=== PATIENT | male | born 1945 | race Caucasian/White ===

== ENCOUNTER 2018-05-13 17:02 | Emergency (ER) | payer OTHER ==
[~2018-05-13] VITALS: Ht 177.8 cm; Wt 99.8 kg
[~2018-05-13 17:02] MED LIST: CEPH500 PO; METF500C; Norco 5-325 Ta1 EACH PO
[2018-05-13] MEDS ORDERED: METF500C PO (17:11)
[2018-05-13] MEDS ORDERED: Norco 5-325 Ta1 EACH PO (17:55)
== END 2018-05-13 18:06 | disposition home or self-care (01) ==
LOC: ER 17:02
DX: S86.912A Strain of unspecified muscle(s) and tendon(s) at lower leg level, left leg, initial encounter (principal); X58.XXXA Exposure to other specified factors, initial encounter; Z91.040 Latex allergy status; Z79.84 Long term (current) use of oral hypoglycemic drugs; Z87.891 Personal history of nicotine dependence
CPT/HCPCS: 73590; 99283-25

== ENCOUNTER 2018-12-20 12:37 | Emergency (ER) | payer OTHER ==
[~2018-12-20] VITALS: Ht 177.8 cm; Wt 90.7 kg
[~2018-12-20 12:37] MED LIST changes: +METF500C PO
[2018-12-20] MEDS ORDERED: ELIQUIS5 MG PO (16:58)
== END 2018-12-20 17:10 | disposition home or self-care (01) ==
LOC: ER 12:37
DX: I48.91 Unspecified atrial fibrillation (principal); M54.2 Cervicalgia; Z91.040 Latex allergy status; Z79.84 Long term (current) use of oral hypoglycemic drugs; Z87.891 Personal history of nicotine dependence; Z85.46 Personal history of malignant neoplasm of prostate; R07.9 Chest pain, unspecified; R91.8 Other nonspecific abnormal finding of lung field
CPT/HCPCS: 70498; 71046; 80053; 83880; 84484; 85025; 93005; 93010; 99284-25; Q9967

== ENCOUNTER 2024-06-26 11:33 | Inpatient (IN) | payer OTHER ==
[~2024-06-26] VITALS: Ht 170.2 cm; Wt 82.8 kg
[~2024-06-26 11:33] MED LIST changes: +ATORVASTATIN CA20 MG PO; +COQ-10100 MG PO; +ELIQUIS5 MG PO; +ESCI10 PO; +METOPROLOL SUCC25 MG PO; +THERA-D2000 UNIT PO
[2024-06-26 12:03] LABS: BASOPHILS ABSOLUTE AUTO 0.02 K/mm3 (0.00-0.23); BASOPHILS PERCENT AUTO 0 % (0-2); EOSINOPHILS PERCENT AUTO 0 % (0-6); Hematocrit 38.4 % (37.0-53.0); Hemoglobin 13.3 g/dL (13.5-17.5); IMMATURE GRAN ABSOLUTE AUTO 0.03 K/mm3 (0.00-0.10); IMMATURE GRAN PERCENT AUTO 0 % (0-1); LYMPHOCYTES PERCENT AUTO 10 % (21-46); MONOCYTES PERCENT AUTO 6 % (4-13); Mean Corpuscular HGB 31.1 pg (26.0-34.0); Mean Corpuscular HGB Conc 34.6 g/dL (31.5-36.5); Mean Corpuscular Volume 90 fL (80-100); NEUTROPHILS ABSOLUTE AUTO 5.77 K/mm3 (1.96-9.15); NEUTROPHILS PERCENT AUTO 83 % (41-73); Platelet Count 148 K/mm3 (150-400); RDW Coefficient Variation 14.2 % (11.7-14.2); RDW Standard Deviation 46.7 fL (35.1-46.3); Red Blood Cell Count 4.28 M/mm3 (4.30-5.90); White Blood Cell Count 6.92 K/mm3 (4.00-11.30)
[2024-06-26 12:29] LABS: Albumin, Blood 2.9 g/dL (3.4-5.0); Albumin/Globulin Ratio 0.7 (0.8-1.8); Bilirubin, Total 1.2 mg/dL (0.1-1.0); Bun/Creatinine Ratio 14.1 (12.0-20.0); Calcium, Blood 8.5 mg/dL (8.5-10.1); Creatinine, Blood 0.71 mg/dL (0.60-1.20); Potassium, Blood 3.3 mmol/L (3.5-5.5); Total Protein, Blood 6.9 g/dL (6.4-8.2)
[2024-06-26] MEDS ORDERED: CefTRIAXone Sodium 1,000 MG in NS 100 ML IV ONE (13:15)
[2024-06-26] MEDS ORDERED: Vancomycin HCL 1,250 MG in NS 250 ML IV ONE (13:15)
[2024-06-26 13:17] LABS: Influenza A, PCR POSITIVE (NEGATIVE); Influenza B, PCR NEGATIVE (NEGATIVE); Resp Syncytial Virus, PCR NEGATIVE (NEGATIVE); SARS-Cov-2 (COVID-19) PCR, MMC NEGATIVE (NEGATIVE)
[2024-06-26] MEDS ORDERED: Albuterol 2.5 MG/3 ML VIAL INH PRN (14:10)
[2024-06-26] MEDS ORDERED: Acetaminophen 325 MG TABLET PO PRN (14:10)
[2024-06-26] MEDS ORDERED: Potassium Chloride 10 Meq Tablet SA PO ONE (14:15)
[2024-06-26] MEDS ORDERED: NS 1,000 ML IV SCH ×2 (14:15→16:25)
[2024-06-26] MEDS ORDERED: Ipratropium/Albuterol SulF 2.5-0.5MG/3 ML Amp INH SCH (14:15)
[2024-06-26] MEDS ORDERED: FLU VACC TS2024-25(6MOS UP)/PF 45 MCG/0.5 ML SYRINGE IM SCH (14:15)
[2024-06-26] MEDS ORDERED: Vancomycin HCL 1,750 MG in NS 500 ML IV ONE (14:50)
[2024-06-26] MEDS ORDERED: TRELEGY ELLIPT1 EACH (14:53)
[2024-06-26] MEDS ORDERED: Tessalon200 MG PO (14:53)
[2024-06-26] MEDS ORDERED: Azithromycin 500 MG in NS 250 ML IV SCH (15:00)
[2024-06-26] MEDS ORDERED: Oseltamivir Phosphate 75 MG Cap PO SCH (15:00)
[2024-06-26 15:22] VITALS: BP 121/85
[2024-06-26] MEDS ORDERED: NS KCl 20mEq 1,000 ML IV SCH (17:55)
[2024-06-26] MEDS ORDERED: NS 250 ML IV PRN (20:20)
[2024-06-26 20:28] VITALS: BP 107/77
[2024-06-26] MEDS ORDERED: GuaiFENesin 600 MG TabCR PO SCH (21:00)
[2024-06-26] MEDS ORDERED: Metoprolol Succinate 25 MG TABCR PO SCH (21:35)
[2024-06-26] MEDS ORDERED: Apixaban 5 MG Tab PO SCH (21:35)
[2024-06-26] MEDS ORDERED: Metoprolol Tartrate 1 MG/ML 5 ML VIAL IV PRN (21:40)
[2024-06-26 21:47] VITALS: BP 103/64
[2024-06-27] VITALS (10 sets, daily range): BP systolic 95–115; BP diastolic 67–82
[2024-06-27] MEDS ORDERED: Benzonatate 100 MG Cap PO PRN (02:20)
[2024-06-27] MEDS ORDERED: Vancomycin HCL 1,000 MG in NS 250 ML IV SCH (04:00)
[2024-06-27 05:10] LABS: BASOPHILS ABSOLUTE AUTO 0.01 K/mm3 (0.00-0.23); BASOPHILS PERCENT AUTO 0 % (0-2); EOSINOPHILS PERCENT AUTO 0 % (0-6); Hematocrit 34.4 % (37.0-53.0); Hemoglobin 11.8 g/dL (13.5-17.5); IMMATURE GRAN ABSOLUTE AUTO 0.03 K/mm3 (0.00-0.10); IMMATURE GRAN PERCENT AUTO 0 % (0-1); LYMPHOCYTES ABSOLUTE AUTO 0.61 K/mm3 (0.84-5.20); LYMPHOCYTES PERCENT AUTO 9 % (21-46); MONOCYTES ABSOLUTE AUTO 0.44 K/mm3 (0.16-1.47); MONOCYTES PERCENT AUTO 7 % (4-13); Mean Corpuscular HGB 30.8 pg (26.0-34.0); Mean Corpuscular HGB Conc 34.3 g/dL (31.5-36.5); Mean Corpuscular Volume 90 fL (80-100); Mean Platelet Volume 9.9 fL (9.1-12.4); NEUTROPHILS ABSOLUTE AUTO 5.63 K/mm3 (1.96-9.15); NEUTROPHILS PERCENT AUTO 84 % (41-73); Platelet Count 144 K/mm3 (150-400); RDW Coefficient Variation 14.1 % (11.7-14.2); RDW Standard Deviation 46.7 fL (35.1-46.3); Red Blood Cell Count 3.83 M/mm3 (4.30-5.90); White Blood Cell Count 6.72 K/mm3 (4.00-11.30)
[2024-06-27 05:51] LABS: Bun/Creatinine Ratio 14.5 (12.0-20.0); Calcium, Blood 8.1 mg/dL (8.5-10.1); Creatinine, Blood 0.62 mg/dL (0.60-1.20)
--- NOTE | 2024-06-27 05:55 | NUR ---
SHIFT SUMMARY NOC PT A/O X 4. PLEASANT AND COOPERATIVE WITH CARE. HR IN 120'S- 140'S DURING CHANGE OF SHIFT VS. PT HR RECHECKED MANUALLY AND WITH PULSE OX AND REMAINED TACHYCARDIC 120'S. HOSPITALIST NOTIFIED AND PT HOME RX METOPROLOL AND ELIQUIS RESTARTED AND PT PLACED IN TELE RUNNING AFIB IN 100'S-130'S. ONE TIME PRN DOSE OF IV METOPROLOL GIVEN THIS AM AND NOW AFIB IN 90'S-100'S. PT REMAINS ON 4L/NC SPO2 >92%. PT HAS HACKING COUGH GIVEN TESSALON PERRLS FOR RELIEF WELL PRN BREATHING TX FROM RT. POTASSIUM 3.0 THIS AM AND HOSPITALIST ORDERED IV KCL 40 MEQ X 1 FOR REPLACEMENT. PT ON DROPLET ISOLATION FOR INFLUENZA A. PT CURRENTLY RESTING WITH BED IN LOWEST POSITION, AND CALL LIGHT WITHIN REACH.
[2024-06-27] MEDS ORDERED: Potassium Chloride 40 MEQ in NS 250 ML IV ONE (06:35)
[2024-06-27] MEDS ORDERED: Enoxaparin 40 MG/0.4 ML SYR SC SCH (09:00)
[2024-06-27] MEDS ORDERED: Metoprolol Tartrate 1 MG/ML 5 ML VIAL IV ONE ×2 (09:45→21:15)
[2024-06-27] MEDS ORDERED: CefTRIAXone Sodium 1,000 MG in NS 100 ML IV SCH (12:00)
[2024-06-27] MEDS ORDERED: CefTRIAXone 1000 MG Vial ONE (12:17)
[2024-06-27] MEDS ORDERED: DEXTROMETHORPHAN/BENZOCAINE 1 EACH LOZENGE MT PRN (12:40)
[2024-06-27] MEDS ORDERED: Vancomycin HCL 1,250 MG in NS 250 ML IV SCH (14:00)
[2024-06-27] MEDS ORDERED: PredniSONE 20 MG Tab PO SCH (14:00)
--- NOTE | 2024-06-27 17:51 | NUR ---
SHIFT SUMMARY PATIENT A/OX3-4, ABLE TO MAKE NEEDS KNOWN. PLEASANT AND TALKATIVE WITH STAFF. 1 PERSON ASSIT. ABLE TO HAVE A SHOWER TODAY. WEANED FROM 4LPM OXYGEN TO 3 LPM VIA NASAL CANNULA, TOLERATING WELL. TELEMETRY IN PLACE, PATIENT WITH MULTIPLE CALLS FROM TELEMETRY FOR HEART RATE 130s 140s IN AFIB. MD AWARE. IV METOPOLOL ADMINISTERED THIS AM AND EFFECTIVE IN REACHING HEART RATE OF 110s. PATIENT STARTED ON PREDNISONE. POTASSIUM REPLACED PER JUN. CONTINUES WITH IV ABX PER JUN. PATIENT WITH FAMILY AT BEDSIDE INTERMITENTLY THROUGHOUT THE SHIFT AND , MARIIA AT BEDSIDE MOST OF THE DAY. PRN COUGH DROPS ADMINISTERED PER JUN AND TESSALON PEARLS. CONTINUES WITH HACKING PRODUCTIVE COUGH THAT PATIENT STATES IS INTERMITTENTLY PAINFUL. NO OTHER CONCERNS AT THIS TIME.
[2024-06-28] VITALS (11 sets, daily range): BP systolic 84–114; BP diastolic 49–82
[2024-06-28 01:30] LABS: Anion Gap 9 mmol/L (3-11); Blood Urea Nitrogen 15 mg/dL (8-24); Bun/Creatinine Ratio 21.1 (12.0-20.0); CO2, Blood 24 mmol/L (21-32); Calcium, Blood 8.4 mg/dL (8.5-10.1); Chloride, Blood 102 mmol/L (98-108); Creatinine, Blood 0.71 mg/dL (0.60-1.20); Glomerular Filtration Rate 93 (60-); Glucose, Blood 333 mg/dL (70-99); Potassium, Blood 3.9 mmol/L (3.5-5.5); Sodium, Blood 131 mmol/L (136-145); Vancomycin, Trough 14.4 ug/mL (5.0-10.0)
--- NOTE | 2024-06-28 05:07 | NUR ---
AAO X3, USES CALL LIGHT FOR NEEDS. TELE IN PLACE AFIB 110'S-120'S. NOTIFIED HOSPITALIST AFIB @ 150, REC'D ONE TIME DOSE 5MG LOPRESSOR. HR DOWN TO 115. 3L VIA NC, BASELINE RA. ASSIT TO BR X1 ASSIST WITH WALKER. RECIEVING ROCEPIN, ZITHOMAX AND VANC, #20 R WRIST. TYLENOL GIVEN @ HS FOR C/O SHOULDER VILLA. SLEPT IN RECLINER D/T COUGHING AND BED UNCOMFORTABLE.
--- NOTE | 2024-06-28 09:00 | NUR ---
Pt sitting up in chair, a/ox3, pleasant and cooperative with care, follows commands, no complaints at this time, heart rate in the 130's, gave metoprolol with am meds, he is on tele, lungs are clear in upper ambriz, crackles in bases, has a frequent tight cough, occ brings up phlem, on 3 liters 02 via n/c hrirr, tele running afib with bbb per monitor, see strip, 2+ edema noted to b/l le, cap refill <3 sec, vs stalble, afebrile, piv to rfa site is clear and patent, btx4, abd flat soft nontender, voids without diff, skin c/w/d, maew, ambulates with walker, neema, states he's feeling better, call light in reach.
[2024-06-28] MEDS ORDERED: dilTIAZem HCL 120 MG CAP.CD PO SCH (10:00)
[2024-06-28] MEDS ORDERED: Metoprolol Tartrate 1 MG/ML 5 ML VIAL IV PRN (10:30)
[2024-06-28] MEDS ORDERED: Diltiazem HCl 5 MG / ML 5ML Vial IV ONE (11:20)
--- NOTE | 2024-06-28 11:50 | NUR ---
pt heart rate went to 170 while in bathroom, has come down to 130-140 after sitting back in chair, call to Dr. Nowak, recieved order for a one time cardizem push of 15mg, this was given, heart rate down to 90's to low 100's, b/p did drop to the 80s briefly, no call light in reach.
[2024-06-28] MEDS ORDERED: Guaifenesin/Dextromethorphan Syrup 5 ML UDC PO STA (13:06)
[2024-06-28] MEDS ORDERED: Guaifenesin/Dextromethorphan Syrup 5 ML UDC PO PRN (14:00)
--- NOTE | 2024-06-28 16:22 | NUR ---
MET WITH PATIENT AND MARIIA. REVIEWED DIAGNOSTIC CT. DISCUSSED ADVANCED DIRECTIVE, SPOUSE REPORTS THEY FILLED IT OUT AT THE [facility]. PROVIDED THERAPUTIC CONVERSATION.
--- NOTE | 2024-06-28 18:36 | NUR ---
pt sat in chair all shift, spouce at bedside, he is [place], and has difficulty understanding with mask on staff, reads lips, did have a ct of chest this shift, call light in reach.
[2024-06-29 00:08] VITALS: BP 82/62
[2024-06-29 04:39] LABS: Hematocrit 34.1 % (37.0-53.0); Hemoglobin 11.1 g/dL (13.5-17.5); Mean Corpuscular HGB 30.3 pg (26.0-34.0); Mean Corpuscular HGB Conc 32.6 g/dL (31.5-36.5); Mean Corpuscular Volume 93 fL (80-100); Mean Platelet Volume 9.4 fL (9.1-12.4); Platelet Count 202 K/mm3 (150-400); RDW Standard Deviation 47.9 fL (35.1-46.3); Red Blood Cell Count 3.66 M/mm3 (4.30-5.90); White Blood Cell Count 6.81 K/mm3 (4.00-11.30)
[2024-06-29 05:05] LABS: Bun/Creatinine Ratio 20.3 (12.0-20.0); Calcium, Blood 8.7 mg/dL (8.5-10.1); Creatinine, Blood 0.79 mg/dL (0.60-1.20); Potassium, Blood 4.2 mmol/L (3.5-5.5)
[2024-06-29 05:32] VITALS: BP 104/76
--- NOTE | 2024-06-29 06:37 | NUR ---
Shift Summary Pt in Afib t/o the night 75-110 bmp usually upper 80s. While using the BR HR spiked up to 140. No c/o of chest pain or discomfort. He has a hacking cough which is usually dry, gave cough medicine PRN. He slept t/o the night in the chair on 3L NC. 1 assist w/ FWW to BR and back. He is AOx4, calls approriatly.
[2024-06-29 07:45] VITALS: BP 116/72
[2024-06-29] MEDS ORDERED: Citalopram Hydrobromide 20 MG Tab PO SCH (09:00)
[2024-06-29] MEDS ORDERED: Cholecalciferol 1000 Unit Tablet (=25MCG) PO SCH (09:00)
[2024-06-29] MEDS ORDERED: Atorvastatin 10 MG Tab PO SCH (09:00)
[2024-06-29] MEDS ORDERED: Furosemide 10 MG/ML 4ML Vial IV ONE (12:35)
[2024-06-29 15:32] VITALS: BP 94/72
[2024-06-29] MEDS ORDERED: Insulin Human Lispro 100 Units/ML 3ML Syringe SC SCH (16:30)
--- NOTE | 2024-06-29 16:36 | NUR ---
SUPPORTIATIVE VISIT. PATIENT IS UP TO THE CHAIR. HE REPORTED THAT HE HAD A VISITOR THIS MORNING AND WAS TALKING MORE THAN HE HAD BEFORE AND HE WAS FEELING A BIT TIRED FROM THAT. KEPT MY VISIT BRIEF TO ALLOW REST
[2024-06-29 18:04] LABS: Acinetobacter baumannii DNA Not Detected copy/mL (NOT DETECT); Adenovirus DNA Not Detected (NOT DETECT); Chlamydia pneumonia Not Detected (NOT DETECT); Enterobacter cloacae DNA Not Detected copy/mL (NOT DETECT); Escherichia coli DNA Not Detected copy/mL (NOT DETECT); Haemophilus influenzae DNA Not Detected copy/mL (NOT DETECT); Human Coronavirus RNA Not Detected (NOT DETECT); Human Metapneumovirus RNA Not Detected (NOT DETECT); Influenza virus A RNA Detected (NOT DETECT); Influenza virus B RNA Not Detected (NOT DETECT); Klebsiella aerogenes DNA Not Detected copy/mL (NOT DETECT); Klebsiella oxytoca DNA Not Detected copy/mL (NOT DETECT); Klebsiella pneumoniae DNA Not Detected copy/mL (NOT DETECT); Legionella pneumophila Not Detected (NOT DETECT); Moraxella catarrhalis DNA Not Detected copy/mL (NOT DETECT); Mycoplasma pneumoniae Not Detected (NOT DETECT); Parainfluenza virus RNA Not Detected (NOT DETECT); Proteus sp DNA Not Detected copy/mL (NOT DETECT); Pseudomonas aeruginosa DNA Not Detected copy/mL (NOT DETECT); Respiratory syncytial Vir RNA Not Detected (NOT DETECT); Rhinovirus+Enterovirus RNA Not Detected (NOT DETECT); Serratia marcescens DNA Not Detected copy/mL (NOT DETECT); Staphylococcus aureus DNA Not Detected copy/mL (NOT DETECT); Streptococcus agalactiae DNA Not Detected copy/mL (NOT DETECT); Streptococcus pneumoniae DNA Detected Bin 10^4 copy/mL (NOT DETECT); Streptococcus pyogenes DNA Not Detected copy/mL (NOT DETECT)
--- NOTE | 2024-06-29 18:17 | NUR ---
PT PLEASANT TODAY. HAVING MANY COUGHING FITS T/O DAY. WHEN COUGHING, DOES ELEVATE H/R TO 140'S. AFTER CALMED DOWN. BACK TO LOW 100'S. IN ROOM TODAY. LUNGS COARSE IN BASES CONTINUES ON 3L O2. REQUESTED ADD CODIENE TO COUGH MED. STATES NOT BENEFICIAL. PT STILL AMBULATING TO BATHROOM, 1 MIN ASST FOR LINES. NO FURTHER CONCERNS NOTED. BED IN LOW POSITION, CALL LITE IN REACH, CALLS APPROP
[2024-06-29 19:05] LABS: Adenovirus Not Detected (NOT DETECT); Bordetella pertussis Not Detected (NOT DETECT); Chlamydophila pneumoniae Not Detected (NOT DETECT); Coronavirus 229E Not Detected (NOT DETECT); Coronavirus HKU1 Not Detected (NOT DETECT); Coronavirus NL63 Not Detected (NOT DETECT); Coronavirus OC43 Not Detected (NOT DETECT); Human Metapneumovirus Not Detected (NOT DETECT); Human Rhinovirus/Enterovirus Not Detected (NOT DETECT); Influenza A/H1 Not Detected (NOT DETECT); Influenza A/H3 Not Detected (NOT DETECT); Influenza B Not Detected (NOT DETECT); Mycoplasma pneumoniae Not Detected (NOT DETECT); Parainfluenza Virus 1 Not Detected (NOT DETECT); Parainfluenza Virus 2 Not Detected (NOT DETECT); Parainfluenza Virus 3 Not Detected (NOT DETECT); Parainfluenza Virus 4 Not Detected (NOT DETECT); Respiratory Syncytial Virus Not Detected (NOT DETECT); SARS-Cov-2 (COVID-19), BioFire Not Detected (NOT DETECT)
[2024-06-29 19:20] VITALS: BP 136/66
--- NOTE | 2024-06-30 00:19 | NUR ---
PT'S HS BLOOD SUGAR WAS 366-ACCORDING TO EMAR HOSPITALIST IS TO BE NOTIFIED WITH BS ABOVE 350. ACCORDING TO SLIDING SCALE HS INSULIN DOSE IS 5 UNITS AND HOSPITALIST AGREED TO GIVING 5 UNITS OF REGULAR INSULIN.
[2024-06-30 01:13] VITALS: BP 110/80
[2024-06-30 01:55] LABS: Anion Gap 6 mmol/L (3-11); Blood Urea Nitrogen 18 mg/dL (8-24); Bun/Creatinine Ratio 22.1 (12.0-20.0); CO2, Blood 30 mmol/L (21-32); Calcium, Blood 8.3 mg/dL (8.5-10.1); Chloride, Blood 101 mmol/L (98-108); Creatinine, Blood 0.82 mg/dL (0.60-1.20); Glomerular Filtration Rate 89 (60-); Glucose, Blood 245 mg/dL (70-99); Potassium, Blood 4.1 mmol/L (3.5-5.5); Sodium, Blood 133 mmol/L (136-145); Vancomycin, Trough 20.6 ug/mL (5.0-10.0)
--- NOTE | 2024-06-30 04:41 | NUR ---
SHIFT SUMM: PT IS A 78 YO FULL CODE WHO WAS ADMITTED FOR HYPOXIA AND IS CURRENTLY IN DROPLET PRECAUTIONS FOR INFLUENZA A. PT IS ON 3L OF O2 AND VERY [place]. PT IS A PLEASANT TYPE 2 DIABEIC WHO RECEIVED 5 UNITS OF REG INSULIN THIS SHIFT (SEE PREV NOTES). PT IS ON TELE WITH AFIB AT 90 AND A BBB. PT IS A SBA TO HELP PT WITH MANAGING LINES WHEN HE USES THE RESTROOM. PT HAS COUGHING FITS WHERE HE BECOMES TACHYCARDIC AT TIMES. PT HAS BEEN MEDICATED FOR COUGH THIS SHIFT WELL. PT REPORT FEELING ANXIOUS AND NERVOUS THIS SHIFT ABOUT HIS PNEUMONIA AND WORRIED ABOUT RECOVERY AT HIS AGE. PT HAS CALL LIGHT IN REACH AND MAKES NEEDS KNOWN.
[2024-06-30 07:56] VITALS: BP 105/88
[2024-06-30] MEDS ORDERED: PredniSONE 10 MG Tab PO SCH (09:00)
[2024-06-30 11:37] VITALS: BP 100/67
[2024-06-30] MEDS ORDERED: Vancomycin HCL 1,000 MG in NS 250 ML IV SCH (14:00)
[2024-06-30 15:59] VITALS: BP 93/70
--- NOTE | 2024-06-30 16:08 | NUR ---
SHIFT SUMMARY PATIENT ON 3 LITERS NC. TELE MONITORING. ABLE TO AMBULATE TO BATHROOM WITH SBA FOR LINES, APPEARS STEADY. CONTINUES ON DROPLET ISOLATION. HAS HAD SOME COUGHING EPISODES, ANGEL MALIN ADMIN PER MAR, PATIENT STATES DURATION AND SEVERITY OF COUGHING EPISODES IS SIGNIFICANTLY LESS THAN YESTERDAY. TOLERATING IV ABX WELL. EATING AND DRINKING ADEQUATELY. BLOOD CX NEG X 3 DAYS. ABLE TO MAKE NEEDS KNOWN. CALL LIGHT IN REACH.
[2024-06-30 20:34] VITALS: BP 100/73
[2024-07-01] VITALS (7 sets, daily range): BP systolic 104–117; BP diastolic 63–81
--- NOTE | 2024-07-01 03:28 | NUR ---
SHIFT SUMM: PT IS DOING BETTER THIS SHIFT AND NOT COUGHING MUCH YESTERDAY.PT REPORTS FEELING BETTER AND WAS VISITED BY NIECE AT BEGINNING OF SHIFT AND PT ALSO SHOWERED THIS SHIFT. PT CONTINUES TO BE ON TELE AND IS AFIB IN THE 80'S W/BBB. PT CONTINUES TO BE ON 3L OF OX ON NC AND STEADY SBA WHEN HE GOES TO THE RESTROOM. PT RECIEVED 3 UNITS OF REG INSULIN THIS SHIFT BEFORE BED. PT HAS CALL LIGHT IN REACH AND HAS BEEN RESTING IN CHAIR MAJORITY OF SHIFT.
[2024-07-01 09:49] LABS: Hematocrit 35.1 % (37.0-53.0); Hemoglobin 11.7 g/dL (13.5-17.5); Mean Corpuscular HGB 30.7 pg (26.0-34.0); Mean Corpuscular HGB Conc 33.3 g/dL (31.5-36.5); Mean Corpuscular Volume 92 fL (80-100); Mean Platelet Volume 9.2 fL (9.1-12.4); Platelet Count 249 K/mm3 (150-400); RDW Coefficient Variation 13.7 % (11.7-14.2); RDW Standard Deviation 46.7 fL (35.1-46.3); Red Blood Cell Count 3.81 M/mm3 (4.30-5.90); White Blood Cell Count 8.26 K/mm3 (4.00-11.30)
[2024-07-01 10:07] LABS: Calcium, Blood 8.8 mg/dL (8.5-10.1); Creatinine, Blood 0.79 mg/dL (0.60-1.20); Potassium, Blood 3.6 mmol/L (3.5-5.5)
[2024-07-01 13:32] LABS: Vancomycin, Trough 21.5 ug/mL (5.0-10.0)
--- NOTE | 2024-07-01 13:38 | NUR ---
CRITICAL VALUE TOOK CALL FROM LAB FOR CRITICAL HIGH VANCO OF 21.5. CALLED DR KING WHO ADVISED TO CALL PHARMACY. PHARMACY WAS NOTIFIED AND CELSA STATED SHE WOULD TAKE A LOOK. NO CHANGE TO PATIENT CONDITION AT THIS TIME.
[2024-07-01] MEDS ORDERED: Furosemide 10 MG/ML 4ML Vial IV ONE (18:15)
--- NOTE | 2024-07-01 18:39 | NUR ---
SHIFT SUMMARY RECEIVED CALL FROM DR KING, ORDERED AM LABS AND ONE TIME LASIX WHICH WAS GIVEN PER JUN. PATIENT IN CHAIR MOST OF SHIFT, AMBULATING TO BATHROOM WITH SBA. ON 2 LITERS NC. EATING WELL. NO C/O PAIN. A/O X3-4. NO BM THIS SHIFT. COUGH LESSENED WITH TESSALON PERLS, NO EXTREME EPISODES THIS SHIFT. ABLE TO MAKE NEEDS KNOWN. CALL LIGHT IN REACH.
[2024-07-01] MEDS ORDERED: Vancomycin HCL 750 MG in NS 250 ML IV SCH (21:00)
[2024-07-02 03:34] VITALS: BP 112/82
--- NOTE | 2024-07-02 05:07 | NUR ---
SHIFT SUMMARY: PT IS AOX4 WITH SOME FORGETFULLNESS. CALLS APPROPRIATELY AND IS COOPERATIVE IN CARE. ABLE TO AMBULATE SBA TO THE BATHROOM AND VOID IND. JUST TO MANAGE ANY LINES. PT TOLERATING MEDICATION WELL. NO ACUTE EVENTS OVERNIGHT. PT IN THE CHAIR RESTING, CALL LIGHT IN REACH. COUGH MEDICATED PER EMR. CONTINUING CARE.
[2024-07-02 06:13] LABS: Bun/Creatinine Ratio 21.1 (12.0-20.0); Calcium, Blood 8.6 mg/dL (8.5-10.1); Creatinine, Blood 0.86 mg/dL (0.60-1.20); Potassium, Blood 3.5 mmol/L (3.5-5.5)
[2024-07-02 07:32] VITALS: BP 126/79
[2024-07-02 11:19] VITALS: BP 112/85
[2024-07-02 15:23] VITALS: BP 111/73
[2024-07-02] MEDS ORDERED: DILT120 PO (16:49)
[2024-07-02] MEDS ORDERED: Q-Tussin100 MG/5 M PO (16:49)
[2024-07-02] MEDS ORDERED: GUAI600T33 PO (16:50)
[2024-07-02] MEDS ORDERED: VISBIOME 112.51 EACH PO (16:50)
[2024-07-02] MEDS ORDERED: CEFU500T30 PO (16:51)
[2024-07-02] MEDS ORDERED: Prednisone10 MG PO (16:51)
[2024-07-02] MEDS ORDERED: Tessalon200 MG PO (16:51)
--- NOTE | 2024-07-02 18:34 | NUR ---
DISCHARGE REVIEWD WITH PT AND SPOUSE. IV PULLED BY AIDE AND TELE REMOVED BY AIDE. PT VERBALIZED UNDRSTANDING MEDS AND INST. WHEELED TO DOOR AT 1746
[2024-07-05 09:14] LABS: Influenza A/2009-H1 Detected (NOT DETECT)
== END 2024-07-02 17:28 | disposition home or self-care (01) | DRG 871 ==
LOC: ER 11:33 → MEDS 14:08
PROVIDERS: Student in an Organized Health Care Education/Training Program; ADMIT Internal Medicine
DX: A41.89 Other specified sepsis (principal); J10.00 Influenza due to other identified influenza virus with unspecified type of pneumonia; J96.01 Acute respiratory failure with hypoxia; E87.1 Hypo-osmolality and hyponatremia; I48.20 Chronic atrial fibrillation, unspecified; J44.0 Chronic obstructive pulmonary disease with (acute) lower respiratory infection; F03.93 Unspecified dementia, unspecified severity, with mood disturbance; F03.94 Unspecified dementia, unspecified severity, with anxiety; R65.20 Severe sepsis without septic shock; E87.6 Hypokalemia; I10 Essential (primary) hypertension; E78.5 Hyperlipidemia, unspecified; J43.9 Emphysema, unspecified; J84.10 Pulmonary fibrosis, unspecified; E11.65 Type 2 diabetes mellitus with hyperglycemia; E88.09 Other disorders of plasma-protein metabolism, not elsewhere classified; I45.10 Unspecified right bundle-branch block; T38.0X5A Adverse effect of glucocorticoids and synthetic analogues, initial encounter; Z79.84 Long term (current) use of oral hypoglycemic drugs; Z79.01 Long term (current) use of anticoagulants; Z85.46 Personal history of malignant neoplasm of prostate; Z87.891 Personal history of nicotine dependence; Z90.79 Acquired absence of other genital organ(s); Z91.040 Latex allergy status
CPT/HCPCS: 0202U; 0241U; 0528U; 36415; 71046; 71250; 80048; 80053; 80202; 82947; 83880; 84145; 84484; 85025; 85027; 87040; 93005; 93010; 94640; 94664; 94760; 94761; 96374; 97161; 97165; 97530; 97535; 99285-25; A9270; J0456; J0696; J1650; J1940; J3370; J3480; J7040; J7050; J7512

== ENCOUNTER 2024-10-02 09:05 | Emergency (ER) | payer OTHER ==
[~2024-10-02] VITALS: Ht 177.8 cm; Wt 96.2 kg
[~2024-10-02 09:05] MED LIST changes: +CEFU500T30 PO; +DILT120 PO; +GUAI600T33 PO; +Prednisone10 MG PO; +Q-Tussin100 MG/5 M PO; +TRELEGY ELLIPT1 EACH; +Tessalon200 MG PO; +VISBIOME 112.51 EACH PO
[2024-10-02 10:13] VITALS: BP 108/74
[2024-10-02 10:58] LABS: BASOPHILS ABSOLUTE AUTO 0.06 K/mm3 (0.00-0.23); BASOPHILS PERCENT AUTO 1 % (0-2); EOSINOPHILS ABSOLUTE AUTO 0.11 K/mm3 (0.00-0.68); EOSINOPHILS PERCENT AUTO 1 % (0-6); Hemoglobin 9.5 g/dL (13.5-17.5); IMMATURE GRAN ABSOLUTE AUTO 0.03 K/mm3 (0.00-0.10); IMMATURE GRAN PERCENT AUTO 0 % (0-1); LYMPHOCYTES ABSOLUTE AUTO 1.03 K/mm3 (0.84-5.20); LYMPHOCYTES PERCENT AUTO 12 % (21-46); MONOCYTES ABSOLUTE AUTO 0.62 K/mm3 (0.16-1.47); MONOCYTES PERCENT AUTO 8 % (4-13); Mean Corpuscular HGB 32.8 pg (26.0-34.0); Mean Corpuscular HGB Conc 33.9 g/dL (31.5-36.5); Mean Corpuscular Volume 97 fL (80-100); Mean Platelet Volume 10.9 fL (9.1-12.4); NEUTROPHILS ABSOLUTE AUTO 6.45 K/mm3 (1.96-9.15); NEUTROPHILS PERCENT AUTO 78 % (41-73); Platelet Count 175 K/mm3 (150-400); RDW Standard Deviation 48.6 fL (35.1-46.3)
[2024-10-02 11:08] LABS: IMMATURE RETIC FRACTION 22.6 % (2.3-16.0); RETIC HGB EQUIVALENT 34.7 pg (28.20-36.60); RETICULOCYTE COUNT PERCENT 2.57 % (0.50-2.50)
[2024-10-02 11:19] LABS: Albumin, Blood 3.4 g/dL (3.4-5.0); Albumin/Globulin Ratio 1.1 (0.8-1.8); Bilirubin, Total 0.9 mg/dL (0.1-1.0); Bun/Creatinine Ratio 12.5 (12.0-20.0); Calcium, Blood 9.1 mg/dL (8.5-10.1); Creatinine, Blood 1.04 mg/dL (0.60-1.20); Globulin, Blood 3.2 g/dL (2.2-4.0); Potassium, Blood 3.7 mmol/L (3.5-5.5); Total Protein, Blood 6.6 g/dL (6.4-8.2)
[2024-10-06] MEDS ORDERED: ELIQUIS5 M2 PO (09:17)
[2024-10-06] MEDS ORDERED: BREZTRI AEROS10.7 GM INH (09:20)
[2024-10-07] MEDS ORDERED: ASCO500 PO (12:24)
[2024-10-07] MEDS ORDERED: DOCU100 PO (12:28)
[2024-10-07] MEDS ORDERED: FERSU300 PO (12:29)
== END 2024-10-02 12:15 | disposition home or self-care (01) ==
LOC: ER 09:05
PROVIDERS: Emergency Medicine
DX: R31.0 Gross hematuria (principal); I48.91 Unspecified atrial fibrillation; E11.9 Type 2 diabetes mellitus without complications; F03.90 Unspecified dementia, unspecified severity, without behavioral disturbance, psychotic disturbance, mood disturbance, and anxiety; E78.5 Hyperlipidemia, unspecified; Z79.01 Long term (current) use of anticoagulants; Z91.040 Latex allergy status; Z79.84 Long term (current) use of oral hypoglycemic drugs; Z79.899 Other long term (current) drug therapy
CPT/HCPCS: 80053; 85025; 85045; 86850; 86900; 86901; 99283

== ENCOUNTER 2024-11-13 10:00 | Day surgery (SDC) | payer OTHER ==
[~2024-11-13] VITALS: Ht 177.8 cm; Wt 94.1 kg
[~2024-11-13 10:00] MED LIST changes: +ASCO500 PO; +BREZTRI AEROS10.7 GM INH; +CeFAZolin Sodium 2,000 MG VIAL ONE; +DOCU100 PO; +ELIQUIS5 M2 PO; +ELIQUIS5 M3 PO; +FERSU300 PO
[2024-11-13] MEDS ORDERED: AIRBORNE IMMUN1 EACH PO (10:33)
[2024-11-13] MEDS ORDERED: FentaNYL Citrate 50 MCG/ML 2 ML Injection ONE (11:08)
[2024-11-13] MEDS ORDERED: Bupivacaine HCl 0.25% 50 ML Vial (NON CHARGE) INJ ONE (11:36)
[2024-11-13 12:32] VITALS: BP 111/80
[2024-11-13] MEDS ORDERED: HYDROcodone 5-APAP 325 TAB ONE (13:21)
--- NOTE | 2024-11-13 13:40 | NUR ---
11/13/24 1340 [address] PT RECEIVED ONE NORCO 5MG/325MG. PT STATED THAT HIS PAIN LEVEL WAS A 5/10. PT HAS HARD COPY FOR NORCO AND WILL HAVE HIS STOP BY THE PHARMACY TO PICK-UP RX. ALL QUESTIONS ANSWERED AND CONCERNS ADDRESSED. PT PLEASANT AND COOPERATIVE WITH CARE PROVIDED. PT STATED THAT ALL OF THE NURSES AND DOCTORS HERE HAVE BEEN VERY WONDERFUL. PT EDUCATION PROVIDED. PT ASSISTED TO WC AND TOOK OUT BY TINO MENDOZA, HIS GAIT WASN'T STEADY.
== END 2024-11-13 13:33 | disposition home or self-care (01) ==
LOC: ORSCSDS 10:00
PROVIDERS: Urology
PROC: 0TJB8ZZ Inspection of Bladder, Via Natural or Artificial Opening Endoscopic (ICD-10-PCS; principal; 2024-11-13 11:30)
PROC: 0VTTXZZ Resection of Prepuce, External Approach (ICD-10-PCS; principal; 2024-11-13 11:30)
DX: R31.0 Gross hematuria (principal); N47.1 Phimosis; Z85.46 Personal history of malignant neoplasm of prostate; I10 Essential (primary) hypertension; E11.9 Type 2 diabetes mellitus without complications; I48.91 Unspecified atrial fibrillation; Z79.01 Long term (current) use of anticoagulants; J44.9 Chronic obstructive pulmonary disease, unspecified; Z87.891 Personal history of nicotine dependence; Z79.84 Long term (current) use of oral hypoglycemic drugs; Z79.899 Other long term (current) drug therapy
CPT/HCPCS: 82947; 88304; A9270; J0690; J2704; J3010; J7120

== ENCOUNTER 2025-01-14 19:36 | Emergency (ER) | payer OTHER ==
[~2025-01-14] VITALS: Ht 177.8 cm; Wt 96.2 kg
[~2025-01-14 19:36] MED LIST changes: +AIRBORNE IMMUN1 EACH PO; -CeFAZolin Sodium 2,000 MG VIAL ONE
[2025-01-14 20:34] LABS: BASOPHILS ABSOLUTE AUTO 0.07 K/mm3 (0.00-0.23); BASOPHILS PERCENT AUTO 1 % (0-2); EOSINOPHILS ABSOLUTE AUTO 0.38 K/mm3 (0.00-0.68); EOSINOPHILS PERCENT AUTO 5 % (0-6); Hematocrit 40.2 % (37.0-53.0); Hemoglobin 13.4 g/dL (13.5-17.5); IMMATURE GRAN ABSOLUTE AUTO 0.02 K/mm3 (0.00-0.10); IMMATURE GRAN PERCENT AUTO 0 % (0-1); LYMPHOCYTES ABSOLUTE AUTO 0.87 K/mm3 (0.84-5.20); LYMPHOCYTES PERCENT AUTO 12 % (21-46); MONOCYTES ABSOLUTE AUTO 0.57 K/mm3 (0.16-1.47); MONOCYTES PERCENT AUTO 8 % (4-13); Mean Corpuscular HGB Conc 33.3 g/dL (31.5-36.5); Mean Corpuscular Volume 90 fL (80-100); NEUTROPHILS ABSOLUTE AUTO 5.52 K/mm3 (1.96-9.15); NEUTROPHILS PERCENT AUTO 74 % (41-73); NRBC ABSOLUTE 0.00 K/mm3 (0.00-0.02); NRBC Auto 0.0 /100 WBC (0.0-0.2); Platelet Count 201 K/mm3 (150-400); RDW Coefficient Variation 14.6 % (11.7-14.2); RDW Standard Deviation 48.2 fL (35.1-46.3)
[2025-01-14 20:37] LABS: Source, Urine Clean Catch
[2025-01-14 20:41] LABS: Bilirubin, Urine Neg (Neg); Color, Urine Red (P-Yellow); Glucose Qualitative, Urine Neg (Neg); Ketones, Urine 1+ (Neg); Leukocyte Esterase, Urine 2+ (Neg); Protein, Urine 3+ (Neg); Specific Gravity, Urine 1.025 (1.003-1.022); Urobilinogen, Urine NORM (Normal)
[2025-01-14 20:53] LABS: Red Blood Cells, Urine TNTC /hpf (0-2); White Blood Cells, Urine 25-50 /hpf (0-5)
[2025-01-14 21:02] LABS: Alanine Aminotransfer (ALT/SGP 28.0 U/L (12-78); Albumin, Blood 3.4 g/dL (3.4-5.0); Albumin/Globulin Ratio 0.9 (0.8-1.8); Anion Gap 10.0 mmol/L (3-11); Aspartate Aminotrans (AST/SGOT 20.0 U/L (12-37); Bilirubin, Total 0.7 mg/dL (0.1-1.0); Blood Urea Nitrogen 20.0 mg/dL (8-24); CO2, Blood 23.0 mmol/L (21-32); Calcium, Blood 9.4 mg/dL (8.5-10.1); Chloride, Blood 105.0 mmol/L (98-108); Creatinine, Blood 0.87 mg/dL (0.60-1.20); Globulin, Blood 3.7 g/dL (2.2-4.0); Glucose, Blood 293.0 mg/dL (70-99); Potassium, Blood 3.9 mmol/L (3.5-5.5); Sodium, Blood 134.0 mmol/L (136-145); Total Protein, Blood 7.1 g/dL (6.4-8.2)
[2025-01-14] MEDS ORDERED: CEFP200 PO (21:32)
[2025-01-14 21:48] VITALS: BP 117/74
== END 2025-01-14 21:51 | disposition home or self-care (01) ==
LOC: ER 19:36
PROVIDERS: Student in an Organized Health Care Education/Training Program
DX: N39.0 Urinary tract infection, site not specified (principal); I48.91 Unspecified atrial fibrillation; Z79.01 Long term (current) use of anticoagulants; Z91.040 Latex allergy status; Z79.84 Long term (current) use of oral hypoglycemic drugs; Z79.899 Other long term (current) drug therapy; Z87.891 Personal history of nicotine dependence
CPT/HCPCS: 80053; 81001; 85025; 86850; 86900; 86901; A9270